=== PATIENT | male | born 1940 | race Caucasian/White ===

== ENCOUNTER → 2018-02-24 12:05 | Outpatient (CLI) | payer MEDICARE ==
[2011-09-14 12:52] VITALS: BMI 30.7
== END | disposition home or self-care (01) ==
LOC: D.MRI 12:05
DX: D32.0 Benign neoplasm of cerebral meninges (principal)

== ENCOUNTER → 2020-06-02 08:48 | Outpatient (CLI) | payer MEDICARE ==
[2011-09-14 12:52] VITALS: BMI 30.7
== END | disposition home or self-care (01) ==
LOC: D.CT 05-23 10:00
PROVIDERS: ATTEND Surgery
DX: I71.4 Abdominal aortic aneurysm, without rupture (principal)